=== PATIENT | male | born 1990 | race Hispanic/Latino ===

== ENCOUNTER 2019-07-29 22:10 | Emergency (ER) | payer OTHER ==
--- NOTE | 2019-07-29 23:08 | CT ---
CT Brain WO Con HISTORY: Head injury. COMPARISON: None. FINDINGS: The ventricular and cisternal system is within normal limits. There are no signs of intrace rebral hemorrhage or extra-axial fluid collections. The mastoid air cells and visualized sinuses are clear. IMPRESSION: No acute intracranial abnormalities.
--- NOTE | 2019-07-29 23:09 | CT ---
CT Cervical Spine WO Con HISTORY: Neck injury. COMPARISON: None. FINDINGS: The vertebral bodies are normal in height. Disc spaces are well preserved and the facets ar e in normal alignment. There is no evidence of canal or foraminal stenosis. There is no CT evidence of fracture. IMPRESSION: No CT evidence of fracture the cervical spine.
--- NOTE | 2019-07-29 23:10 | CT ---
CT Thoracic Spine WO Con HISTORY: Back injury. COMPARISON: None. FINDINGS: The vertebral bodies and disc spaces appear unremarkable no signs of any compression fractu res. There is what is presumed to be an old shrapnel injury along the left side of the T8-9 level. There is no evidence of fracture. IMPRESSION: No CT evidence of fracture
--- NOTE | 2019-07-29 23:12 | CT ---
CT Lumbar Spine WO Con HISTORY: Back injury. COMPARISON: None FINDINGS: The vertebral bodies and disc spaces are normal. The facets are in normal alignment. No par s defects. Review of disc levels showed no signs of disc herniation, canal or foraminal stenosis. Incidental note is made of a punctate nonobstructing left renal calculus. IMPRESSION: No CT evidence of fracture of the lumbar spine.
[2019-07-29] MEDS ORDERED: Ketorolac Tromethamine 30 MG/ML VIAL ONE (23:19)
== END 2019-07-30 01:25 ==
LOC: ERS 22:10
DX: M54.9 Dorsalgia, unspecified (principal); Z79.899 Other long term (current) drug therapy; W06.XXXA Fall from bed, initial encounter
CPT/HCPCS: 70450; 72125; 72128; 72131; 96372; J1885